=== PATIENT | male | born 1965 ===

== ENCOUNTER 2020-02-15 20:20 | Outpatient (REF) | payer MEDICAID, SELFPAY ==
[2020-02-15 21:13] LABS: ALT 34 U/L (16-63); AST 16 U/L (15-37); Albumin 4.2 g/dL (3.4-5.0); Alkaline Phosphatase 101 U/L (46-116); Bilirubin, Total 0.5 mg/dL (0.2-1.0); Calculated LDL 148 mg/dL (<100); Cholesterol 224 mg/dL (<200); HDL Cholesterol 32 mg/dL (40-60); Total Protein 7.7 g/dL (6.4-8.2); Triglyceride 220 mg/dL (<150)
[2020-02-15 21:23] LABS: Bilirubin, Direct 0.09 mg/dL (0.00-0.20)
== END 2020-02-15 20:40 ==
LOC: NCHCN 20:20
PROVIDERS: Visit Provider Nurse Practitioner Family
DX: I65.29 Occlusion and stenosis of unspecified carotid artery (principal)
CPT/HCPCS: 80061; 80076